=== PATIENT | male | born 1970 | race African-American/Black ===

== ENCOUNTER 2022-10-07 17:49 | Observation (INO) | payer OTHER ==
[2022-10-07 18:14] VITALS: BMI 35.3
[2022-10-07 18:43] LABS: HEMATOCRIT 43.5 % (35.4-49); HEMOGLOBIN 14.3 G/dL (11.7-16.9); MCH 28.8 pg (25.7-33.7); MCHC 32.9 g/dl (32.0-35.9); MEAN CELL VOLUME 87.7 fl (80-96); MEAN PLT VOLUME 8.5 fl (7.5-11.1); PLATELET COUNT 222.9 10^3/uL (134-434); RBC 4.96 10^6/uL (4.00-5.60); RDW 13.7 % (11.9-15.9); WHITE BLOOD COUNT 5.4 10^3/uL (4.0-10.8)
[2022-10-07 18:53] LABS: INR 1.03 (0.83-1.09); PROTHROMBIN TIME (PATIENT) 11.8 SEC (9.7-13.0)
[2022-10-07 18:55] LABS: ACTIVATED PTT 30.5 SECONDS (25.2-36.5)
[2022-10-07 19:03] LABS: ALBUMIN 4.1 g/dl (3.4-5.0); BILIRUBIN,TOTAL 0.6 mg/dl (0.2-1); CALCIUM 8.9 mg/dl (8.5-10); CREATININE 1.2 mg/dl (0.55-1.3); MAGNESIUM 2.1 mg/dL (1.8-2.4); TOT PROT 7.6 g/dl (6.4-8.2)
[2022-10-07] MEDS ORDERED: ACETAMINOPHEN/CAFFEINE/BUTALBITAL 1 TAB PO PRN (19:04)
[2022-10-07 23:39] LABS: EPITHELIAL CELLS FEW /hpf
[2022-10-07 23:40] LABS: URINE HYALINE CAST 0-2 /lpf; URINE MUCUS 1+
[2022-10-08 07:04] LABS: HEMATOCRIT 40.6 % (35.4-49); MCH 27.5 pg (25.7-33.7); MEAN CELL VOLUME 86.1 fl (80-96); MEAN PLT VOLUME 8.4 fl (7.5-11.1); PLATELET COUNT 201 10^3/uL (134-434); RBC 4.72 M/mm3 (4.00-5.60); RDW 13.4 % (11.9-15.9); WHITE BLOOD COUNT 4.8 K/mm3 (4.0-10.0)
[2022-10-08 07:36] LABS: CALCIUM 8.7 mg/dL (8.5-10.1)
[2022-10-08 07:37] LABS: BLOOD UREA NITROGEN 12.6 mg/dL (7-18)
[2022-10-08 07:40] LABS: CREATININE 1.1 mg/dL (0.55-1.3)
[2022-10-08] MEDS ORDERED: ASPIRIN 81 MG CHEWABLE TABLETS PO ONE (09:30)
[2022-10-08] MEDS ORDERED: ATORVASTATIN CA 80 MG TABLET (FP) PO ONE (09:30)
[2022-10-08] MEDS ORDERED: ATORVASTATIN CA 80 MG TABLET (FP) ONE (09:52)
[2022-10-08] MEDS ORDERED: ASPIRIN 81 MG CHEWABLE TABLETS ONE (09:52)
[2022-10-08] MEDS ORDERED: ENOXAPARIN NA (PORCINE) 60 MG/0.6 ML DISP.SYRIN SQ ONE (09:52)
[2022-10-08] MEDS: ENOXAPARIN NA (PORCINE) 40 MG/0.4 ML DISP.SYRIN SQ SCH (10:06)
[2022-10-08] MEDS ORDERED: amLODIPine BESYLATE 10 MG TABLET (FP) PO ONE (16:53)
[2022-10-08] MEDS ORDERED: amLODIPine BESYLATE 5 MG TABLET (FP) ONE (17:02)
[2022-10-08] MEDS: LOSARTAN 50MG/HCTZ 12.5MG 1 TAB PO SCH (21:49)
[2022-10-09 06:52] VITALS: TEMP 98.3
[2022-10-09] MEDS: ENOXAPARIN NA (PORCINE) 40 MG/0.4 ML DISP.SYRIN SQ SCH (09:16)
[2022-10-09] MEDS: LOSARTAN 50MG/HCTZ 12.5MG 1 TAB PO SCH (09:16)
[2022-10-09] MEDS ORDERED: amLODIPine BESYLATE 10 MG TABLET (FP) PO SCH (10:00)
[2022-10-09] MEDS ORDERED: FLU VACC QS2022-23(6MOS UP)/PF 60 MCG/0.5 ML SYRINGE IM ONE (10:00)
[2022-10-09 10:27] VITALS: RESP 18
[2022-10-09 13:58] VITALS: BP 141/77; PULSE 87
[2022-10-09] MEDS ORDERED: ATORVASTATIN CA 80 MG TABLET (FP) PO SCH (22:00)
== END 2022-10-09 17:04 | disposition home or self-care (01) ==
LOC: FER 17:49 → INTOOBSV 10-08 17:49 → JERBED 10-08 17:49 → J4W 10-08 19:10 → FER 10-08 19:15 → J4W 10-08 19:17
PROVIDERS: ADMIT Internal Medicine
PROC: 3E023GC Introduction of Other Therapeutic Substance into Muscle, Percutaneous Approach (ICD-10-PCS; principal; 2022-10-08)
PROC: 3E0234Z Introduction of Serum, Toxoid and Vaccine into Muscle, Percutaneous Approach (ICD-10-PCS; 2022-10-08)
DX: G45.9 Transient cerebral ischemic attack, unspecified (principal); U07.1 COVID-19; I10 Essential (primary) hypertension; E66.8 Other obesity; Z68.35 Body mass index [BMI] 35.0-35.9, adult; F17.210 Nicotine dependence, cigarettes, uncomplicated
CPT/HCPCS: 0241U-QW; 36415; 70450-TC; 70551-TC; 71045-TC-FY; 80048; 80053; 81003; 81015; 82550; 82553; 82728; 83615; 83735; 84484; 85025; 85027; 85610; 85730; 86850; 86900; 86901; 93005; 96372; 99285-25; G0378; Q2036

== ENCOUNTER 2023-06-09 15:30 | Observation (INO) | payer OTHER ==
[2023-06-09 15:35] VITALS: BMI 35.6
[2023-06-09 18:22] LABS: BASO % 0.7 % (0-2.0); EOS % 2.3 % (0-4.5); HEMOGLOBIN 13.3 GM/dL (11.7-16.9); LYMPH % 40.3 % (8-40); MCH 28.3 pg (25.7-33.7); MCHC 33.3 g/dl (32.0-35.9); MEAN PLT VOLUME 8.4 fl (7.5-11.1); MONO % 6.3 % (3.8-10.2); NEUT % 50.4 % (42.8-82.8); PLATELET COUNT 249 10^3/uL (134-434); RBC 4.71 M/mm3 (4.00-5.60); RDW 13.9 % (11.9-15.9); WHITE BLOOD COUNT 6.3 K/mm3 (4.0-10.0)
[2023-06-09 18:39] LABS: POTASSIUM 3.9 mmol/L (3.5-5.1)
[2023-06-09 18:40] LABS: CALCIUM 9.1 mg/dL (8.5-10.1)
[2023-06-09 18:42] LABS: ALBUMIN 3.8 g/dl (3.4-5.0); BLOOD UREA NITROGEN 13.2 mg/dL (7-18)
[2023-06-09 18:44] LABS: CREATININE 1.5 mg/dL (0.55-1.3)
[2023-06-09 18:46] LABS: TOT PROT 7.5 g/dl (6.4-8.2)
[2023-06-09 18:47] LABS: BILIRUBIN,TOTAL 0.6 mg/dL (0.2-1)
[2023-06-09 19:34] LABS: INR 1.08 (0.83-1.09); PROTHROMBIN TIME (PATIENT) 12.5 SEC (9.7-13.0)
[2023-06-09 19:37] LABS: ACTIVATED PTT 30.8 SECONDS (25.2-36.5)
[2023-06-09] MEDS ORDERED: ASPIRIN 81 MG CHEWABLE TABLETS PO ONE (21:44)
[2023-06-09] MEDS ORDERED: ASPIRIN 81 MG CHEWABLE TABLETS ONE (21:46)
[2023-06-09] MEDS ORDERED: hydrALAZINE HCL 20 MG/ML VIAL IVPUSH PRN (22:49)
[2023-06-10] MEDS ORDERED: HYDROCHLOROTHIAZIDE 25 MG TABLET (FP) PO SCH ×2 (01:09→22:47)
[2023-06-10] MEDS: HYDROCHLOROTHIAZIDE 25 MG TABLET (FP) PO SCH ×2 (02:13→09:09)
[2023-06-10] MEDS: HEPARIN NA (PORCINE) 5,000 UNITS/ML 1ML VIAL SQ SCH ×3 (06:21→13:00)
[2023-06-10 08:18] LABS: HEMOGLOBIN 13.3 GM/dL (11.7-16.9); MCHC 32.4 g/dl (32.0-35.9); MEAN CELL VOLUME 86.5 fl (80-96); MEAN PLT VOLUME 8.5 fl (7.5-11.1); PLATELET COUNT 255 10^3/uL (134-434); RBC 4.74 M/mm3 (4.00-5.60); RDW 13.2 % (11.9-15.9); WHITE BLOOD COUNT 5.3 K/mm3 (4.0-10.0)
[2023-06-10 08:58] LABS: ALBUMIN 3.6 g/dl (3.4-5.0); BLOOD UREA NITROGEN 15.4 mg/dL (7-18); CALCIUM 9.2 mg/dL (8.5-10.1)
[2023-06-10 09:01] LABS: CREATININE 1.2 mg/dL (0.55-1.3); PHOSPHOROUS 3.4 mg/dL (2.5-4.9)
[2023-06-10 09:03] LABS: BILIRUBIN,TOTAL 0.9 mg/dL (0.2-1); TOT PROT 7.1 g/dl (6.4-8.2)
[2023-06-10] MEDS: ASPIRIN 81 MG CHEWABLE TABLETS PO SCH (09:09)
[2023-06-10 09:31] LABS: CHOLESTEROL 243 mg/dL (50-200)
[2023-06-10 09:34] LABS: HDL CHOLESTEROL 36 mg/dL (40-60); LDL CHOLESTEROL (ONLY SJRH) 177 mg/dL (5-100)
[2023-06-10] MEDS ORDERED: ASPIRIN 81 MG CHEWABLE TABLETS PO SCH (10:00)
[2023-06-10] MEDS ORDERED: AZITHROMYCIN IVPB 500 MG/250 ML BAG IVPB SCH (10:00)
[2023-06-10] MEDS ORDERED: LOSARTAN POTASSIUM 50 MG TABLET PO SCH (13:41)
[2023-06-10] MEDS: amLODIPine BESYLATE 10 MG TABLET (FP) PO SCH (15:58)
[2023-06-10] MEDS ORDERED: LABETALOL HCL 5 MG/1 ML (100MG/20 ML VIAL) IVPUSH PRN ×2 (17:36→17:38)
[2023-06-10] MEDS ORDERED: LOSARTAN POTASSIUM 50 MG TABLET PO ONE (17:37)
[2023-06-10] MEDS ORDERED: ROSUVASTATIN CA 20 MG TABLET PO SCH (22:00)
[2023-06-11] MEDS ORDERED: LOSARTAN POTASSIUM 50 MG TABLET PO SCH ×2 (02:58→07:18)
[2023-06-11 08:35] LABS: BASO % 0.7 % (0-2.0); EOS % 3.7 % (0-4.5); HEMATOCRIT 41.4 % (35.4-49); LYMPH % 43.2 % (8-40); MCH 28.5 pg (25.7-33.7); MCHC 33.7 g/dl (32.0-35.9); MEAN CELL VOLUME 84.5 fl (80-96); MEAN PLT VOLUME 8.3 fl (7.5-11.1); MONO % 6.7 % (3.8-10.2); NEUT % 45.7 % (42.8-82.8); PLATELET COUNT 256 10^3/uL (134-434); RDW 13.9 % (11.9-15.9); WHITE BLOOD COUNT 5.8 K/mm3 (4.0-10.0)
[2023-06-11 08:55] LABS: POTASSIUM 3.8 mmol/L (3.5-5.1)
[2023-06-11 09:04] LABS: CALCIUM 9.2 mg/dL (8.5-10.1)
[2023-06-11 09:05] LABS: ALBUMIN 3.8 g/dl (3.4-5.0); BLOOD UREA NITROGEN 16.4 mg/dL (7-18)
[2023-06-11 09:08] LABS: CREATININE 1.2 mg/dL (0.55-1.3); PHOSPHOROUS 4.3 mg/dL (2.5-4.9)
[2023-06-11 09:09] LABS: BILIRUBIN,TOTAL 0.4 mg/dL (0.2-1); TOT PROT 7.5 g/dl (6.4-8.2)
[2023-06-11] MEDS: ASPIRIN 81 MG CHEWABLE TABLETS PO SCH (09:24)
[2023-06-11] MEDS: amLODIPine BESYLATE 10 MG TABLET (FP) PO SCH (09:25)
[2023-06-11] MEDS ORDERED: ENOXAPARIN NA (PORCINE) 40 MG/0.4 ML DISP.SYRIN SQ SCH (10:00)
[2023-06-11 10:53] VITALS: BP 153/97; PULSE 78; RESP 18; TEMP 97.7
== END 2023-06-11 13:17 | disposition home or self-care (01) ==
LOC: JER 15:30 → UNDOADMOB 19:56 → JERBED 19:56 → OBSVTOIN 22:01 → INTOOBSV 22:01 → J4W 06-10 00:14 → JERBED 06-10 00:14 → J4W 06-10 09:09
PROVIDERS: ADMIT Internal Medicine; ATTEND Internal Medicine
PROC: 3E023GC Introduction of Other Therapeutic Substance into Muscle, Percutaneous Approach (ICD-10-PCS; principal; 2023-06-10)
DX: I16.0 Hypertensive urgency (principal); N17.9 Acute kidney failure, unspecified; Z86.73 Personal history of transient ischemic attack (TIA), and cerebral infarction without residual deficits; E78.5 Hyperlipidemia, unspecified; Z29.8 Encounter for other specified prophylactic measures
CPT/HCPCS: 36415; 70450-TC; 70544-TC; 70551-TC; 71045-TC-FY; 80053; 80061; 82550; 82553; 82962; 83036; 83735; 84100; 84484; 85025; 85027; 85610; 85730; 86850; 86900; 86901; 93005; 93010; 93306-TC; 93880-TC; 96372; 99285-25; G0378; J1644